=== PATIENT | female | born 1985 | race Asian ===

== ENCOUNTER → 2017-01-21 | Outpatient (CLI) | payer BC | END | disposition home or self-care (01) | LOC: C.PAPS 18:11 | PROVIDERS: ATTEND Obstetrics & Gynecology | DX: Z01.419 Encounter for gynecological examination (general) (routine) without abnormal findings (principal) ==

== ENCOUNTER → 2017-03-20 | Outpatient (CLI) | payer BC ==
[2017-03-25 12:12] LABS: QUANTIF TB AG-NIL <0.00 IU/ML; QUANTIFERON NIL 0.07 IU/ML
== END | disposition home or self-care (01) ==
LOC: C.LABSPEC 09:30
PROVIDERS: ATTEND Family Medicine
DX: Z11.1 Encounter for screening for respiratory tuberculosis (principal)

== ENCOUNTER 2017-11-16 20:57 | Inpatient (IN) | payer OTHER ==
[~2017-11-16] VITALS: Ht 165.1 cm; Wt 84.0 kg
[2017-11-16 22:30] VITALS: BMI 30.8
[2017-11-16] MEDS ORDERED: PRENTAB26 PO (22:33)
[2017-11-16 23:16] VITALS: Ht 165.1 cm; Wt 84.0 kg
[2017-11-16] MEDS ORDERED: NURSING VERBAL MED ORDER ONE (23:30)
[2017-11-16 23:33] LABS: HEMATOCRIT 41.2 % (37-47); HEMOGLOBIN 13.7 g/dL (12.0-16.0); MEAN CORPUSCULAR HEMOGLOBIN 29.9 pg (25-34); MEAN CORPUSCULAR HGB CONC 33.3 g/dl (32-36); MEAN PLATELET VOLUME 9.8 fL (7.4-10.4); PLATELET COUNT 240 K/uL (130-400); RED CELL DISTRIBUTION WIDTH CV 13.4 % (11.5-14.5); RED CELL DISTRIBUTION WIDTH SD 43.7 fL (36.4-46.3); WHITE BLOOD COUNT 11.97 K/uL (4.8-10.8)
[2017-11-16] MEDS: LACTATED RINGER'S 1000ML 1,000 ML IV SCH (23:35)
[2017-11-16] MEDS: BUTORPHANOL TARTRATE 1 MG/ML VIAL IV PRN (23:36)
[2017-11-17] MEDS: BUTORPHANOL TARTRATE 1 MG/ML VIAL IV PRN (04:31)
[2017-11-17] MEDS: LACTATED RINGER'S 1000ML 1,000 ML IV SCH ×3 (07:01→13:56)
[2017-11-17] MEDS ORDERED: BUPIVACAINE 0.25% 30 ML VIAL ONE (07:02)
[2017-11-17] MEDS ORDERED: EpHEDrine SULFATE INJ 50 MG/ML AMP ONE (07:02)
[2017-11-17] MEDS ORDERED: FENTANYL CITRATE INJ 50 MCG/1 ML 2 ML VIAL ONE (07:03)
[2017-11-17] MEDS ORDERED: FENTANYL 2MCG/ML ROPIV 1.25MG/ML 100ML BAG EPI ONE (07:03)
--- NOTE | 2017-11-17 07:55 | Progress Note ---
Progress Note Date of Service Nov 17, 2017. Progress Note Admit note 32 F P0010 at 39.2 weeks admitted in labor. FHT Cat 1. cervix 7/100/-0/ vertex. Will be getting epidural. anticipate normal delivery.
[2017-11-17] MEDS ORDERED: LACTATED RINGER'S 1000ML 500 ML IV PRN ×2 (08:28→16:22)
[2017-11-17] MEDS ORDERED: NALOXONE HCL INJ 1 MG in SODIUM CHLORIDE 0.9% 1000ML 1,000 ML IV PRN (08:28)
[2017-11-17] MEDS ORDERED: DiphenhydrAMINE HCL 50 MG/ML VIAL IV PRN (08:30)
[2017-11-17] MEDS ORDERED: ONDANSETRON INJ 2 MG/ML 2 ML VIAL IV PRN (08:30)
[2017-11-17] MEDS ORDERED: NALBUPHINE HCL INJ 10 MG/ML AMP IV PRN (08:30)
[2017-11-17] MEDS ORDERED: NALOXONE HCL INJ 0.4 MG/1 ML VIAL/CARP IV PRN (08:30)
[2017-11-17] MEDS ORDERED: EpHEDrine SULFATE INJ 50 MG/ML AMP IV PRN (08:30)
[2017-11-17] MEDS ORDERED: FENTANYL 2MCG/ML ROPIV 1.25MG/ML 100ML BAG EPI PRN (08:30)
[2017-11-17] MEDS ORDERED: OXYTOCIN 30 UNITS/500ML NSS IV PRN (16:30)
[2017-11-17] MEDS ORDERED: LACTATED RINGER'S 1000ML 1,000 ML IV SCH ×2 (16:48→18:18)
[2017-11-17] MEDS ORDERED: LIDOCAINE/EPINEPHRINE 2% 1:200,000 20 ML SDV ONE (16:51)
[2017-11-17] MEDS ORDERED: CITRIC ACID/SODIUM CITRATE 15 ML UDC ONE (16:53)
[2017-11-17] MEDS ORDERED: TERBUTALINE SULFATE 1 MG/ML VIAL SQ ONE (17:00)
[2017-11-17] MEDS ORDERED: CITRIC ACID/SODIUM CITRATE 15 ML UDC PO ONE (17:00)
[2017-11-17] MEDS ORDERED: CEFAZOLIN IV 2,000 MG in SYRINGE 0 ML IV ONE (17:00)
[2017-11-17] MEDS ORDERED: OXYTOCIN INJ 10 UNITS/ML VIAL ONE (17:32)
[2017-11-17] MEDS ORDERED: ONDANSETRON INJ 2 MG/ML 2 ML VIAL ONE (17:37)
[2017-11-17] MEDS ORDERED: MoRPHine SULFATE PF 1 MG/ML 10 ML AMP/VIAL ONE (17:37)
[2017-11-17] MEDS ORDERED: PHENYLEPHRINE HCL INJ 10 MG/ML VIAL ONE (17:49)
[2017-11-17] MEDS ORDERED: KETOROLAC TROMETHAMINE 30 MG/ML VIAL ONE (17:58)
--- NOTE | 2017-11-17 18:16 | [facility] Post Operative Brief Note ---
Immediate Operative Summary Operative Date Nov 17, 2017. Pre-Operative Diagnosis term , nonreassuring heart rate, arrest of descent Post-Operative Diagnosis term , nonreassuring heart rate, arrest of descent, persistent occiput transverse Procedure(s) Performed primary caesarean section for term , nonreassuring heart rate, arrest of descent, persistent occiput transverse for living male child at [address] Moreno Flight Attendant/Inflight Supervisor Surgeon(s) Dr. Sales Estimated Blood Loss 600 Findings Consistent with Post-Op Diagnosis Fluids (cc crystalloids) 700 ml Specimens placenta- hold cord blood Drains Luis blood tinged Anesthesia Type L&D Only EPID Exist Complication(s) none Disposition Accompanied Pt To Recover: yes Disposition: L&D
[2017-11-17] MEDS ORDERED: DIPHTHERIA/TETANUS/PERTUSSIS 0.5 ML SYR/VIAL IM. ONE (18:30)
[2017-11-17] MEDS ORDERED: BENZOCAINE 20% AER SPR 82.5 GM CAN EXT PRN (18:30)
[2017-11-17] MEDS ORDERED: MEASLES, MUMPS & RUBELLA VIRUS VIAL SQ. ONE (18:30)
[2017-11-17] MEDS ORDERED: HYDROCORTISONE ACETATE 25 MG SUPP PR PRN (18:30)
[2017-11-17] MEDS ORDERED: SUPERCREAM 0.870 % 15GM JAR EXT PRN (18:30)
[2017-11-17] MEDS ORDERED: LANOLIN OINT EXT PRN (18:30)
[2017-11-17] MEDS ORDERED: MAGNESIUM HYDROXIDE SUSP 30 ML UDC PO PRN (18:30)
[2017-11-17] MEDS ORDERED: SENNA 8.6 MG TAB PO PRN (18:30)
--- NOTE | 2017-11-17 18:31 | Anesthesia Procedure Note ---
Anesthesia Epidural Removal Nt Date & Time Nov 17, 2017 at 18:30 Vital Signs Pain Intensity: 8.0 Notes Mental Status: alert / awake / arousable, participated in evaluation Nausea / Vomiting: adequately controlled Pain: adequately controlled Airway Patency, RR, SpO2: stable & adequate BP & HR: stable & adequate Hydration State: stable & adequate Neuraxial Anesthesia: was administered, sensory block is resolving Anesthetic Complications: no major complications apparent, pt satisfied with anesthetic care Epidural: removed without complications, with tip intact Notes: epidural removed in OR after . Pt tolerated well - no apparent complications.
[2017-11-17] MEDS ORDERED: CONTINUE MEDICATION ONE (18:45)
[2017-11-17] MEDS ORDERED: MoRPHine SULFATE PF 1 MG/ML 10 ML AMP/VIAL EPI PRN (18:45)
[2017-11-17] MEDS ORDERED: KETOROLAC TROMETHAMINE 30 MG/ML VIAL IV. PRN (18:45)
[2017-11-17] MEDS ORDERED: NO NARCOTICS OR SEDATIVES SCH (18:45)
[2017-11-17] MEDS ORDERED: MoRPHine SULFATE 2 MG/ML CARP IV PRN (18:45)
--- NOTE | 2017-11-17 19:58 | HISTORY & PHYSICAL EXAMINATION ---
DATE OF ADMISSION: 11/17/2017 PREOPERATIVE DIAGNOSES: Term with nonreassuring heart tones, arrest of descent. POSTOPERATIVE DIAGNOSIS: Term with nonreassuring heart tones, arrest of descent. HISTORY OF PRESENT ILLNESS: The patient is a 32-year-old female 2, para 0-0-1-0 at 39 weeks and 2 days who is admitted in active labor. She progressed to full cervical dilatation, had arrest of descent, with nonreassuring heart tones, a primary section was then performed. PAST MEDICAL HISTORY: Nonsignificant. PAST SURGICAL HISTORY: Elective . MEDICATIONS: Current medications include vitamins. ALLERGIES: No known allergies. FAMILY HISTORY: Noncontributory. SOCIAL HISTORY: Denies smoking, alcohol, or drug use. PHYSICAL EXAMINATION: HEENT: Within normal limits. LUNGS: Clear to auscultation. CARDIOVASCULAR: Regular rate and rhythm. ABDOMEN: Soft, nontender, gravid. heart tones category 2 at the time of the decision for . NEUROLOGICAL: Intact. EXTREMITIES: Within normal limits. SKIN: With no rash. ASSESSMENT: Nonreassuring heart tones category 2. PLAN: section,
[2017-11-17] MEDS: OXYTOCIN INJ 30 UNITS in LACTATED RINGER'S 1000ML 1,000 ML IV SCH (20:26)
--- NOTE | 2017-11-17 20:27 | OPERATIVE REPORT ---
DATE OF OPERATION: 11/17/2017 PREOPERATIVE DIAGNOSES: Term with nonreassuring heart tones, arrest of descent. POSTOPERATIVE DIAGNOSES: Term with nonreassuring heart tones, arrest of descent, persistent occiput transverse position. SURGEON: Sami Moreno MD. BOX ATTACHER: Herminio Sales MD ANESTHESIA: Epidural with Duramorph. ESTIMATED BLOOD LOSS: 600 mL. CLINICAL HISTORY: The patient is a 32-year-old female para 0-0-1-0 at 39 weeks and 2 days admitted in labor. The patient progressed to full dilatation. She pushed for almost an hour. The patient had several episodes of bradycardia. The patient was repositioned in several positions, given Brethine, and decision was made to do a section for nonreassuring heart tone, persistent category 2, with recovery to normal category 1 heart tones after subcu Brethine. Consents were obtained. The patient had a timeout, and antibiotics were given preop. DESCRIPTION OF PROCEDURE: Under satisfactory epidural anesthesia, the patient was prepped and draped in the usual sterile fashion. A low Pfannenstiel incision entering into the abdominal cavity in successive layers was then used. Bladder flap was then made with sharp dissection. A low segment transverse incision over the lower uterine incision was made. The incision was widened in the AP diameter. The baby was found to be in the occiput transverse lie and then delivered with the aid of fundal pressure, live male. Cord was doubly clamped and cut. Apgars were actually 9 and 9. weight was 7 pounds 9 ounces. Cord blood was obtained. Placenta delivered spontaneously and intact. Uterus was then exteriorized. Ring forceps were then placed on both angles in the inferior margin. Uterus was closed in double layered closure with 0 Vicryl suture in a continuous interlocking fashion followed by another imbricating suture. No active bleeding was noted. The tubes and ovaries bilaterally were found to be within normal limits. Contents to the lower pelvis were then irrigated. Uterus was placed back into the normal anatomical position. There was a small amount of bleeding on the bladder flap. This was then cauterized, and then one area was bleeding, and a 3-0 Vicryl suture was then used. Surgicel was then applied over this area. No active bleeding was noted. The fascia was then reapproximated with 0 Vicryl suture in a continuous fashion on both sides. Subcuticular layer was closed with 3-0 plain, and the skin was then reapproximated with 4-0 Monocryl suture. Steri-Strips were then applied. Blood tinged urine was noted. Estimated blood loss is 600 mL. The final sponge, needle, and instrument counts were found to be correct. The patient was then placed supine on a stretcher and taken to recovery room in stable condition. I attest to the content of the Intraoperative Record and any orders documented therein. Any exception s are noted below.
[2017-11-17 21:00] VITALS: BP 109/69; PULSE 91; TEMP 37.4; O2SAT 96
[2017-11-17 22:00] VITALS: O2SAT 96
[2017-11-17] MEDS: DOCUSATE SODIUM 100 MG CAP PO SCH (22:30)
[2017-11-17] MEDS: SIMETHICONE 80 MG CHEW PO SCH (22:30)
[2017-11-17 23:00] VITALS: O2SAT 96
[2017-11-18] VITALS (14 sets, daily range): BP systolic 95–108; BP diastolic 52–73; PULSE 81–96; TEMP 36.8–37.4; O2SAT 93–97
[2017-11-18] MEDS: OXYTOCIN INJ 30 UNITS in LACTATED RINGER'S 1000ML 1,000 ML IV SCH (04:42)
[2017-11-18] MEDS ORDERED: MEPERIDINE HCL 50 MG/ML CARP IV PRN ×2 (06:30)
[2017-11-18] MEDS ORDERED: DC INTRASPINAL MORPHINE SCH (06:30)
[2017-11-18] MEDS ORDERED: KETOROLAC TROMETHAMINE 30 MG/ML VIAL IV. PRN (06:30)
[2017-11-18] MEDS ORDERED: ONDANSETRON INJ 2 MG/ML 2 ML VIAL IV PRN (06:30)
[2017-11-18] MEDS ORDERED: DiphenhydrAMINE HCL 50 MG/ML VIAL IV PRN (06:30)
[2017-11-18] MEDS ORDERED: OXYCODONE/ACETAMINOPHEN 5-325 TAB PO PRN (06:30)
[2017-11-18 06:32] LABS: BASO % 0.1 %; BASO ABS # 0.02 K/uL (0-0.2); EOS % 0.5 %; EOS ABS # 0.08 K/uL (0-0.5); HEMATOCRIT 30.3 % (37-47); HEMOGLOBIN 10.3 g/dL (12.0-16.0); IG# 0.07 K/uL (0.00-0.02); LYMPH % 8.2 %; LYMPH ABS # 1.36 K/uL (1.2-3.4); MEAN CELL VOLUME 89.1 fL (80-100); MEAN CORPUSCULAR HEMOGLOBIN 30.3 pg (25-34); MEAN PLATELET VOLUME 9.5 fL (7.4-10.4); MONO % 5.7 %; MONO ABS # 0.94 K/uL (0.11-0.59); NEUT % 85.1 %; PLATELET COUNT 174 K/uL (130-400); RED CELL DISTRIBUTION WIDTH CV 13.4 % (11.5-14.5); RED CELL DISTRIBUTION WIDTH SD 43.9 fL (36.4-46.3); WHITE BLOOD COUNT 16.57 K/uL (4.8-10.8)
[2017-11-18] MEDS: PRENATAL VITAMIN TAB PO SCH (08:07)
[2017-11-18] MEDS: FERROUS SULFATE 325 MG TAB PO SCH (08:07)
[2017-11-18] MEDS: SIMETHICONE 80 MG CHEW PO SCH ×4 (08:07→20:00)
[2017-11-18] MEDS: DOCUSATE SODIUM 100 MG CAP PO SCH ×2 (08:07→20:00)
[2017-11-18] MEDS: IBUPROFEN 600 MG TAB PO PRN ×3 (08:08→20:01)
[2017-11-18] MEDS: OXYCODONE/ACETAMINOPHEN 5-325 TAB PO PRN ×3 (08:09→20:01)
--- NOTE | 2017-11-18 09:40 | Surgery Progress Note ---
Surgery Progress Note Date of Service Nov 18, 2017. Subjective Post OP Day: 1 + feeling well, + ambulating, + flatus, + pain controlled, + diet (Tolerating Po food and meds), No complaints, No chest pain, No bowel movement Objective Vital Signs: Date Time Temp Pulse Resp B/P (MAP) Pulse Ox O2 Delivery O2 Flow Rate FiO2 11/18/17 07:55 Room Air 11/18/17 07:51 37.4 96 17 101/68 (79) 93 Room Air 11/18/17 06:49 37.4 96 16 108/73 (85) 94 Room Air 11/18/17 06:00 16 93 11/18/17 05:00 16 95 11/18/17 04:00 16 96 11/18/17 03:46 37.3 85 16 99/66 (77) 95 Room Air 11/18/17 03:00 18 97 11/18/17 02:00 16 97 11/18/17 01:00 16 93 11/18/17 00:00 37.2 81 16 102/65 (77) 97 Room Air 11/18/17 00:00 16 97 11/18/17 00:00 97 Room Air 11/17/17 23:00 16 96 11/17/17 22:00 16 96 11/17/17 21:00 16 96 11/17/17 21:00 37.4 91 16 109/69 (82) 96 Room Air General Appearance: WD/WN, no apparent distress Head: normocephalic, atraumatic Neck: supple, no adenopathy, thyroid normal, no JVD, no carotid bruits, trachea midline Respiratory/Chest: chest non-tender, lungs clear, normal breath sounds, no respiratory distress, no accessory muscle use Cardiovascular: regular rate, rhythm, no edema, no gallop, no JVD, no murmur Abdomen: normal bowel sounds, non tender, non distended, soft, no organomegaly , no pulsatile mass Incision(s): clean, dry, intact, no erythema, no drainage Extremities: normal range of motion, non-tender, normal inspection, no pedal edema, no calf tenderness, normal capillary refill, pelvis stable Laboratory Results: Results Past 24 Hours Test 11/18/17 06:12 Range/Units White Blood Count 16.57 4.8-10.8 K/uL Red Blood Count 3.40 4.2-5.4 M/uL Hemoglobin 10.3 12.0-16.0 g/dL Hematocrit 30.3 37-47 % Mean Corpuscular Volume 89.1 80-100 fL Mean Corpuscular Hemoglobin 30.3 25-34 pg Mean Corpuscular Hemoglobin Concent 34.0 32-36 g/dl Platelet Count 174 130-400 K/uL Mean Platelet Volume 9.5 7.4-10.4 fL Neutrophils (%) (Auto) 85.1 % Lymphocytes (%) (Auto) 8.2 % Monocytes (%) (Auto) 5.7 % Eosinophils (%) (Auto) 0.5 % Basophils (%) (Auto) 0.1 % Neutrophils # (Auto) 14.10 1.4-6.5 K/uL Lymphocytes # (Auto) 1.36 1.2-3.4 K/uL Monocytes # (Auto) 0.94 0.11-0.59 K/uL Eosinophils # (Auto) 0.08 0-0.5 K/uL Basophils # (Auto) 0.02 0-0.2 K/uL RDW Standard Deviation 43.9 36.4-46.3 fL RDW Coefficient of Variation 13.4 11.5-14.5 % Immature Granulocyte % (Auto) 0.4 % Immature Granulocyte # (Auto) 0.07 0.00-0.02 K/uL Assessment & Plan C.sec day #1 pt doing well continue day #1 care
[2017-11-18] MEDS ORDERED: BISACODYL 5 MG TABEC PO ONE (22:00)
[2017-11-19 08:00] VITALS: BP 104/68; PULSE 81; TEMP 37
[2017-11-19] MEDS: OXYCODONE/ACETAMINOPHEN 5-325 TAB PO PRN ×2 (08:44→15:56)
[2017-11-19] MEDS: IBUPROFEN 600 MG TAB PO PRN ×2 (08:44→15:56)
[2017-11-19] MEDS: DOCUSATE SODIUM 100 MG CAP PO SCH ×2 (08:45→19:43)
[2017-11-19] MEDS: PRENATAL VITAMIN TAB PO SCH (08:45)
[2017-11-19] MEDS: FERROUS SULFATE 325 MG TAB PO SCH (08:45)
[2017-11-19] MEDS: SIMETHICONE 80 MG CHEW PO SCH ×4 (08:46→19:43)
--- NOTE | 2017-11-19 09:28 | OB/GYN Progress Note ---
SIGN BOARD ERECTOR Progress Note Date of Service: Nov 19, 2017. Patient is seen and examined. She feels well, no complaints. Pain is under control with oral meds. Ambulating without dizziness. Voiding without difficulty Tolerating regular diet with out N&V Flatus + BM NEG Bleeding is minimal No fever/ chills/ CP/ SOB/ N&V/ Leg pain Breast feeding without problems Date Time Temp Pulse Resp B/P (MAP) Pulse Ox O2 Delivery O2 Flow Rate FiO2 11/19/17 08:00 37.0 81 16 104/68 (80) Room Air 11/19/17 07:35 Room Air 11/18/17 23:30 37.0 96 16 104/70 (81) 94 Room Air 11/18/17 23:30 94 Room Air 11/18/17 16:15 36.8 84 18 104/69 (81) 97 Room Air 11/18/17 16:15 97 Room Air 11/18/17 11:54 37.1 94 15 95/52 (66) 93 Room Air Test 11/16/17 23:26 11/18/17 06:12 White Blood Count 11.97 H 16.57 H Red Blood Count 4.58 3.40 L Hemoglobin 13.7 10.3 #L Hematocrit 41.2 30.3 L Mean Corpuscular Volume 90.0 89.1 Mean Corpuscular Hemoglobin 29.9 30.3 Mean Corpuscular Hemoglobin Concent 33.3 34.0 RDW Standard Deviation 43.7 43.9 RDW Coefficient of Variation 13.4 13.4 Platelet Count 240 174 Mean Platelet Volume 9.8 9.5 Neutrophils (%) (Auto) 85.1 Lymphocytes (%) (Auto) 8.2 Monocytes (%) (Auto) 5.7 Eosinophils (%) (Auto) 0.5 Basophils (%) (Auto) 0.1 Neutrophils # (Auto) 14.10 H Lymphocytes # (Auto) 1.36 Monocytes # (Auto) 0.94 H Eosinophils # (Auto) 0.08 Basophils # (Auto) 0.02 Immature Granulocyte % (Auto) 0.4 Immature Granulocyte # (Auto) 0.07 H PE: General: Alert, orientedx3, NAD CVS: S1S2 RRR Lungs; CTAB Abd: soft, NT, ND, BS+, fundus firm, below Umbilicus Incision: Clean, dry, intact Perineum intact, Lochia rubra minimal Ext; NT, no edema AP: 32 yo s/p C Section, pod# 2 VSS Afebrile doing well Continue routine postop care Encourage ambulation, PO intake All questions were answered D/C home tomorrow
[2017-11-19 16:10] VITALS: BP 103/69; PULSE 91; TEMP 37.3; O2SAT 97
[2017-11-19] MEDS ORDERED: BISACODYL 10 MG SUPP PR PRN (18:30)
[2017-11-19 23:45] VITALS: BP 110/75; PULSE 83; TEMP 37.1; O2SAT 94
[2017-11-20 07:30] VITALS: BP 134/88; PULSE 101; TEMP 37.1; O2SAT 99
[2017-11-20] MEDS: DOCUSATE SODIUM 100 MG CAP PO SCH (07:49)
[2017-11-20] MEDS: PRENATAL VITAMIN TAB PO SCH (07:49)
[2017-11-20] MEDS: FERROUS SULFATE 325 MG TAB PO SCH (07:49)
[2017-11-20] MEDS: SIMETHICONE 80 MG CHEW PO SCH (07:50)
[2017-11-20] MEDS: IBUPROFEN 600 MG TAB PO PRN (07:52)
[2017-11-20] MEDS ORDERED: OXYC-57 PO (09:12)
[2017-11-20] MEDS ORDERED: MTR600X PO (09:12)
--- NOTE | 2017-11-20 09:14 | Discharge Instructions ---
Discharge Instructions Date of Service Nov 20, 2017. Admission Reason for Admission: Check Bleeding Discharge Discharge Diagnosis / Problem: term delivered by Discharge Goals Goal(s): Routine recovery after Activity Recommendations Activity Limitations: as noted below Lifting Limitations: no more than 10 pounds Exercise/Sports Limitations: gradually increase as tolerated May Resume Sexual Activity: after follow-up appointment Shower/Bathe: no limitations Driving or Machine Use: resume 3 days after discharge . Instructions / Follow-Up Instructions / Follow-Up ACTIVITY RECOMMENDATIONS: * Gradual return to full activity over the next 2-3 weeks. * No lifting - nothing heavier than baby over the next 2-3 weeks. * Do not engage in vigorous exercise, sexual activity or sports until cleared by your physician. * Do not drive or operate any motorized equipment until cleared by your physician. * You may shower/bathe daily. BREAST CARE: If you are not breast feeding: * Wear a supportive bra 24 hours a day for one to two weeks. * Avoid stimulating your breasts and nipples as much as possible during the first few weeks after delivery. * When taking a shower, have the warm water hit your back, not breasts. * When your breasts feel full, apply ice packs. Usually three to four times a day helps ease the discomfort. * Take a mild pain medication (Tylenol/Motrin) when you are uncomfortable. If breast feeding: * Use breast milk to lubricate nipples. Lansinoh cream may be used for sore nipples. You do not need to remove cream prior to breast feeding. If using a different brand of cream, check the label for directions regarding removal of cream prior to nursing. * Wear a supportive bra. * If having problems with breasts or breast feeding, call a taxation consultant or your health care provider. OVER THE COUNTER MEDICATION: * For discomfort or pain, you may use Acetaminophen (Tylenol), Ibuprofen (Advil ), or Naproxen (Aleve) following the package directions. * For constipation you may use Colace following the package directions. SPECIAL CARE INSTRUCTIONS: When you are discharged from the hospital, it is important for you to follow the instructions listed below: * During the first week at home, you should be able to care for yourself and your baby. In addition, the usual light household activities are encouraged. * Limit your activities to the way you feel. Do not try to clean the house or move furniture. Be sensible. * If you actively engage in sports and have done so up until the time of your delivery, you may resume these activities as soon as you feel able. This may take up to one month or even longer. Use good judgment. * Continue to take your vitamins for at least six weeks after the of your baby. * Your diet need not be limited unless you were on a special diet before your delivery. Breast-feeding mothers need around 2500 calories per day and at least 64-80 ounces of fluid per day (8 to 10 glasses). * You should eat foods from the four major food groups. Crash diets or fad diets are to be avoided. Eating lean meats, fresh fruits and vegetables, low-fat dairy products, high fiber foods and a regular exercise program, will help you get back to your pre- weight without putting your health at risk. * Constipation is sometimes a problem after delivery. Take a mild laxative as needed. If breast feeding, Milk of Magnesia is acceptable to use. You may use a suppository or Fleets enema if no episiotomy. * A daily shower or tub bath is suggested. Be sure to thoroughly and gently dry the perineum. * A bloody vaginal discharge will usually continue until around four weeks post . A small amount of bleeding may continue for as long as six weeks. Vaginal discharge changes from the bright red bleeding after delivery to pink then brownish and finally yellowish-pink before becoming white and disappearing. * Bleeding may increase with activity. Your first period may come in 4-8 weeks. If you are breast feeding, your period may be delayed even longer. * [place] (sex) can begin whenever both you and your partner feel comfortable and do not have any form of genital infection. It is recommended that you wait at least six weeks for internal and external healing to occur. If you have questions, please talk to your health care practitioner. A condom should be used to prevent infection and . * Foreplay, gentle intercourse and lubrication is very important the first several times to prevent pain. A water-based lubricant such as K-Y jelly or Astroglide may be used. * Tampons and/or Douching should be avoided until after six weeks check-up. * If you have RH negative blood and your baby is RH positive, you will receive RHOGAM by injection prior to discharge. The nurse will give you a card to keep with you that has the date and place that you received RHOGAM after delivery. * During your care, you had a Rubella screen done to check for the presence of rubella antibodies in your blood. If your test was negative, you will receive a Rubella vaccine prior to discharge. This vaccine may cause a fever, soreness at the injection site and flu-like symptoms. If these symptoms persist, notify your health care practitioner. is not advised for three months after a Rubella vaccine. * Verbalizes understanding of car seat law as reviewed with patient nursing. * Car Seat hand-out given and reviewed with patient by nursing. * Shaken baby information reviewed with patient by nursing. Call you doctor if: * Heavy bleeding (saturating several pads an hour) or passing clots the size of your fist. * A fever >101 degrees F (38.3 degrees C) on two occasions four hours apart and /or chills. * Unusual pain in the pelvic or vaginal areas. Pain should improve each day . * Call the doctor for any increased redness, drainage or swelling around the incision and any pain unrelieved by prescribed pain medication. * Any signs or symptoms of phlebitis (possible blood clots forming in the veins ): leg pain, warm, red or swollen area on leg. * "Baby Blues" lasting longer than two weeks. If you have any questions or concerns, call your health care practitioner at . FOLLOW-UP VISIT: * Incision check (staple removal) in 1 week. Please call doctor's office at to set up appointment. * Please call the office at to schedule a 6 week examination. It is important you keep this appointment. * It is important for you to make arrangements for either yearly or twice yearly check-ups thereafter. Current Hospital Diet Patient's current hospital diet: Regular Diet Discharge Diet Recommended Diet: Regular OB Diet Fluid Restriction: None Procedures Procedures Performed: primary caesarean section for term , nonreassuring heart rate, arrest of descent, persistent occiput transverse for living male child at 1732 Pending Studies Studies pending at discharge: no Medical Emergencies . Who to Call and When: Medical Emergencies: If at any time you feel your situation is an emergency, please call 911 immediately. . Non-Emergent Contact Non-Emergency issues call your: Primary Care Provider . . "Provider Documentation" section prepared by Sami Moreno. .
--- NOTE | 2017-11-20 09:57 | Surgery Progress Note ---
Surgery Progress Note Date of Service Nov 20, 2017. Subjective Post OP Day: 3 + ambulating, + bowel movement, + flatus, + pain controlled, + diet Objective Vital Signs: Date Time Temp Pulse Resp B/P (MAP) Pulse Ox O2 Delivery O2 Flow Rate FiO2 11/20/17 07:30 37.1 101 16 134/88 (103) 99 Room Air 11/20/17 07:30 99 Room Air 11/19/17 23:45 94 Room Air 11/19/17 23:45 37.1 83 16 110/75 (87) 94 Room Air 11/19/17 16:10 37.3 91 18 103/69 (80) 97 Room Air 11/19/17 16:10 97 Room Air General Appearance: no apparent distress Abdomen: non tender, non distended, soft Incision(s): clean, dry, intact Extremities: non-tender, normal inspection, no pedal edema Assessment & Plan regular diet discharged home follow up in 1 week in office
[2017-11-20 12:02] VITALS: BP_DIAS 88; PULSE 101; TEMP 37.1
== END 2017-11-20 12:00 | disposition home or self-care (01) | DRG 766 ==
LOC: C.LD 20:57 → C.OPB 20:57 → C.LD 23:14 → C.OBG 11-17 20:43
PROVIDERS: ADMIT Obstetrics & Gynecology; ATTEND Obstetrics & Gynecology
PROC: 10D00Z1 Extraction of Products of Conception, Low, Open Approach (ICD-10-PCS; principal; 2017-11-17 17:04)
DX: O76 Abnormality in fetal heart rate and rhythm complicating labor and delivery (principal); O64.0XX0 Obstructed labor due to incomplete rotation of fetal head, not applicable or unspecified; Z3A.39 39 weeks gestation of pregnancy; Z37.0 Single live birth

== ENCOUNTER 2022-03-15 16:30 | Inpatient (IN) ==
[2022-03-15] MEDS: LACTATED RINGER'S 1,000 ML IV PRN ×2 (17:37→18:45)
[2022-03-15] MEDS ORDERED: OXYTOCIN 30 UNITS/500 ML BAG IV PRN (17:45)
[2022-03-15 17:59] LABS: Hematocrit (blood only) 38.7 % (34.1-44.9); Hemoglobin 13.1 g/dl (12.0-16.0); Mean Corpuscular Hemoglobin 30.9 pg (25.0-34.0); Mean Corpuscular Hgb Conc 33.9 g/dL (32.0-36.0); Mean Corpuscular Volume 91.3 fL (80.0-100.0); Mean Platelet Volume 10.2 fL (9.4-12.3); Platelet Count 191 K/uL (130-400); RDW Coefficient of Variation 13.2 % (11.5-14.5); RDW Standard Deviation 44.2 fL (36.4-46.3); Red Blood Count 4.24 M/uL (3.93-5.22); White Blood Count 12.09 K/ul (4.8-10.8)
[2022-03-15] MEDS ORDERED: ePHEDrine sulfate 50 MG/ML AMP ONE (18:03)
[2022-03-15] MEDS ORDERED: fentaNYL citrate 100 MCG/2 ML VIAL ONE (18:03)
[2022-03-15] MEDS ORDERED: SODIUM CHLORIDE 0.9% INJ 10 ML VIAL ONE (18:03)
[2022-03-15] MEDS ORDERED: fentaNYL 2MCG/ML ROPIVACAINE 1.25MG/ML 100 ML BAG EPI ONE (18:04)
[2022-03-15] MEDS ORDERED: BUPIVACAINE 0.25% 30 ML VIAL ONE (18:04)
--- NOTE | 2022-03-15 19:17 | Anesthesiology Consultation ---
Date of Service March 15, 2022 Assessment & Plan (1) Encounter for pre-operative examination: Chart Review Chart Review: Acceptable Risk for Labor Epidural History Height/Weight Height: 5 ft 5.75 in Weight: 82.554 kg Allergies Allergy/AdvReac Type Severity Reaction Status Date / Time No Known Allergies Allergy Unverified 11/20/17 07:48 Medications Home Medications Medication Instructions Recorded Confirmed Last Taken Multivit/Min/Iron/Fol Ac/Pren 1 tab PO DAILY #0 tabs 11/16/17 Unknown ( Vitamin) Ibuprofen 600 mg PO Q4H PRN Pain, DERAS, 11/20/17 Unknown Cramping, or Fever #30 tabs OXYCODONE/ACETAMINOPHEN 5MG/325MG 1 tab PO Q4H PRN Pain - Pain Scale 11/20/17 Unknown (PERCOCET 5MG/325MG) 1-5 #20 tabs Active Medications Generic Name Dose Route Start Last Admin Trade Name Freq PRN Reason Stop Dose Admin Lactated Ringer's 1,000 mls @ 125 mls/hr 03/15/22 17:45 03/15/22 18:45 Lr IV 03/17/22 17:44 125 mls/hr .Q8H PRN Administration L&D Protocol Protocol Past Medical History Medical History (Updated 03/15/22 @ 19:17 by Deepak Villalta MD) No significant medical problems Past Surgical History Surgical History (Updated 03/15/22 @ 19:17 by Deepak Villalta MD) No pertinent past surgical history Social History Smoking Status: Never smoker Do You Dip or Chew Tobacco: No Hx Alcohol Use: No Hx Substance Use: No substance use type: does not use Physical Exam Vital Signs Last Vital Signs Temp 36.6 C 03/15/22 16:52 Pulse 72 03/15/22 16:52 Resp 18 03/15/22 16:52 BP 126/87 03/15/22 16:52 Testing Laboratory Results 03/15/22 17:50
[2022-03-15] MEDS ORDERED: NALOXONE HCL 0.4 MG/1 ML VIAL/CARP IV PRN (19:41)
[2022-03-15] MEDS ORDERED: fentaNYL 2MCG/ML ROPIVACAINE 1.25MG/ML 100 ML BAG EPI PRN (19:41)
[2022-03-15] MEDS ORDERED: ONDANSETRON INJ 2 MG/ML 2 ML VIAL IV PRN (19:41)
[2022-03-15] MEDS ORDERED: NALOXONE HCL 1 MG in SODIUM CHLORIDE 0.9% 1000ML 1,000 ML IV PRN (19:41)
[2022-03-15] MEDS ORDERED: ePHEDrine sulfate 50 MG/ML AMP IV PRN (19:41)
--- NOTE | 2022-03-15 20:42 | Labor Progress Brief Note ---
Date of Service March 15, 2022 Assessment & Plan (1) (vaginal after ): Plan: Pt attempting Discussed and reviewed risk of consent signed by pt FHR; CAT1 Ctx: 3-4mins VE; /-1 AROM- clear anticipate vag delivery Admission and Anticipated Discharge Date Admission Date: March 15, 2022 Results & Data ([facility]) Vital Signs (Past 12 Hours) Vital Signs Temp Pulse Resp BP Pulse Ox 03/15/22 16:52 36.6 C 72 18 126/87 03/15/22 20:34 97 03/15/22 20:34 80 03/15/22 20:34 111/73 03/15/22 20:29 97 03/15/22 20:29 81 03/15/22 20:24 97 03/15/22 20:24 77 03/15/22 20:19 98 03/15/22 20:19 82 03/15/22 20:19 117/75 03/15/22 20:14 98 03/15/22 20:14 89 03/15/22 20:06 36.7 C 03/15/22 20:09 97 03/15/22 20:09 81 03/15/22 20:04 98 03/15/22 20:04 78 03/15/22 19:59 97 03/15/22 19:59 82 03/15/22 19:54 97 03/15/22 19:54 80 03/15/22 19:49 97 03/15/22 19:49 83 03/15/22 19:48 80 03/15/22 19:48 115/75 03/15/22 19:46 81 03/15/22 19:46 111/72 03/15/22 19:44 98 03/15/22 19:44 77 03/15/22 19:44 80 03/15/22 19:44 116/73 03/15/22 19:42 74 03/15/22 19:42 144/80 H 03/15/22 19:39 98 03/15/22 19:39 84 03/15/22 19:40 81 03/15/22 19:40 104/65 03/15/22 19:38 81 03/15/22 19:38 101/65 03/15/22 19:36 72 03/15/22 19:36 97/63 L 03/15/22 19:34 99 03/15/22 19:34 82 03/15/22 19:29 98 03/15/22 19:29 76 03/15/22 19:24 98 03/15/22 19:24 85 03/15/22 19:19 98 03/15/22 19:19 84 03/15/22 16:44 36.6 C 72 126/87
[2022-03-16] MEDS ORDERED: METHYLERGONOVINE MALEATE 0.2 MG/ML AMP ONE (01:37)
[2022-03-16] MEDS ORDERED: miSOPROStoL 200 MCG TAB ONE (01:37)
[2022-03-16] MEDS ORDERED: BENZOCAINE 20% AER SPR 82.5 GM CAN EXT PRN (02:14)
[2022-03-16] MEDS ORDERED: ACETAMINOPHEN 325 MG TAB PO PRN (02:14)
[2022-03-16] MEDS ORDERED: OXYTOCIN 30 UNITS/500 ML BAG IV PRN (02:14)
[2022-03-16] MEDS ORDERED: METHYLERGONOVINE MALEATE 0.2 MG/ML AMP IM ONE (02:14)
[2022-03-16] MEDS ORDERED: miSOPROStoL 200 MCG TAB PR ONE (02:14)
[2022-03-16] MEDS ORDERED: HYDROCORTISONE ACETATE 25 MG SUPP PR PRN (02:14)
[2022-03-16] MEDS ORDERED: DIPHTHERIA/TETANUS/PERTUSSIS 0.5 ML SYR/VIAL IM ONE (02:14)
--- NOTE | 2022-03-16 02:23 | Anesthesia Procedure Note ---
Date of Service March 16, 2022 Anesthesia Post Epidural Note Vital Signs Vital Signs: Temp Pulse Resp BP Pulse Ox 36.8 C 91 H 18 143/82 H 96 03/15/22 22:00 03/16/22 02:19 03/15/22 23:00 03/16/22 02:19 03/16/22 02:09 Notes Mental Status: alert / awake / arousable Nausea / Vomiting: adequately controlled Pain: adequately controlled Airway Patency, RR, SpO2: stable & adequate BP & HR: stable & adequate Hydration State: stable & adequate Neuraxial Anesthesia: was administered and sensory block is resolving Anesthetic Complications: no major complications apparent and Pt Satisfied with anesthetic care Epidural: Removed without complications and With tip intact
[2022-03-16 02:24] LABS: Base Excess Cord Arterial Bld -4.7 mEq/L (-9-1.8); Base Excess Cord Venous Blood -4.4 mEq/L (-7.7-1.9); CO2 Cord Arterial Blood 69 mmHg (39.1-73.5); Cord Venous Blood HCO3 23 mmol/L (18.4-26.8); Cord Venous Blood PCO2 48 mmHg (30.4-57.2); Cord Venous Blood PO2 28 mmHg (14.1-43.3); Cord Venous Blood pH 7.28 (7.20-7.44); HCO3 Cord Arterial Blood 25 mmol/L (19.7-28.5); O2 Saturation Cord Venous Bld < 60.0 % (<68); Oxygen Sat Cord Arterial Blood < 60.0 % (<60); PO2 Cord Arterial Blood 14 mmHg (4.1-31.7); pH Cord Arterial Blood 7.17 (7.1-7.38)
[2022-03-16] MEDS: IBUPROFEN 600 MG TAB PO PRN ×3 (06:45→20:41)
[2022-03-16] MEDS: PRENATAL VITAMIN 1 TAB PO SCH (09:05)
[2022-03-16] MEDS: DOCUSATE SODIUM 100 MG CAP PO SCH ×2 (09:05→20:40)
--- NOTE | 2022-03-16 09:20 | Delivery Summary ---
DELIVERY NOTE: The patient delivered a live infant in left occiput anterior presentation. There was no nuchal cord. was delivered and placed on mother's abdomen. Delayed cord clamp was performed. Weight and Apgars in the pediatric record. Cord blood and cord gases were obtained. Placenta was spontaneousl y delivered. Inspection of the placenta shows a 2-vessel cord. Inspection of the perineum shows a third-degree midline laceration. Laceration was repaired in layer s with 2-0 and 3-0 Vicryl. Rectal exam was done during and after the procedure. There were no sutur es in the rectum. There was good sphincter tone post-repair. Estimated blood loss was 450 mL. All instruments were removed from the vagina and accounted for x2 including sponges, needles, and ret ractors. Baby was sent to recovery in stable condition. Job ID: [id number]
--- NOTE | 2022-03-16 10:16 | Obstetrical Progress Note ---
Date of Service March 16, 2022 Subjective Ambulation: limited ambulation Voiding: voiding difficulty Passing Gas:: Yes Diet Tolerance:: regular diet Lochia:: Small Feeding Type:: breast feeding Current Pain Level(1-10): 0 having difficulty voiding Physical Exam Constitutional WD/WN, vitals as above Musculoskeletal Extremities: extremities normal to inspection Skin no rashes, warm and dry Neurologic patellar DTR's 2+ bilat, sensation intact Psychiatric A+Ox3, euthymic affect Results & Data ([facility]) Vital Signs (Past 12 Hours) Vital Signs Temp Pulse Pulse Pulse Resp BP BP 03/16/22 07:50 37 C 81 16 108/72 03/16/22 04:26 37.2 C 87 16 138/84 03/16/22 04:04 89 126/78 03/16/22 03:49 98 H 109/78 03/16/22 03:34 94 H 120/68 03/16/22 03:20 98 H 135/62 03/16/22 03:04 90 151/81 H 03/16/22 02:49 96 H 151/97 H 03/16/22 02:34 77 141/94 H 03/16/22 02:19 91 H 143/82 H 03/16/22 02:09 95 H 03/16/22 02:04 03/16/22 02:04 89 03/16/22 02:04 89 117/71 03/16/22 01:59 89 03/16/22 01:54 91 H 03/16/22 01:49 03/16/22 01:49 91 H 03/16/22 01:49 90 111/68 03/16/22 01:44 94 H 03/16/22 01:39 96 H 03/16/22 01:34 03/16/22 01:34 102 H 03/16/22 01:34 103 H 118/69 03/16/22 01:29 98 H 03/16/22 01:28 95 H 03/16/22 01:24 92 H 03/16/22 01:19 03/16/22 01:19 90 03/16/22 01:19 88 114/66 03/16/22 01:17 93 H 03/16/22 01:14 89 03/16/22 01:09 94 H 03/16/22 01:04 88 111/69 03/16/22 01:02 111 H 03/16/22 00:59 96 H 03/16/22 00:54 95 H 03/16/22 00:52 105 H 03/16/22 00:49 03/16/22 00:49 93 H 03/16/22 00:49 105 H 119/57 L 03/16/22 00:44 93 H 03/16/22 00:39 116 H 03/16/22 00:35 95 H 119/69 03/16/22 00:34 102 H 03/16/22 00:29 97 H 03/16/22 00:24 99 H 03/16/22 00:19 93 H 03/16/22 00:14 97 H 03/16/22 00:09 79 03/16/22 00:04 03/16/22 00:04 80 03/16/22 00:04 75 105/56 L 03/15/22 23:59 03/15/22 23:59 81 03/15/22 23:00 18 03/15/22 23:00 18 03/15/22 23:54 03/15/22 23:54 88 03/15/22 23:50 83 03/15/22 23:50 101/55 L 03/15/22 23:49 03/15/22 23:49 83 03/15/22 23:44 03/15/22 23:44 81 03/15/22 23:39 03/15/22 23:39 85 03/15/22 23:34 03/15/22 23:34 85 03/15/22 23:35 88 03/15/22 23:35 101/58 L 03/15/22 23:29 03/15/22 23:29 86 03/15/22 23:24 03/15/22 23:24 89 03/15/22 23:19 03/15/22 23:19 89 03/15/22 23:19 107/62 03/15/22 23:14 03/15/22 23:14 87 03/15/22 23:09 03/15/22 23:09 94 H 03/15/22 23:04 03/15/22 23:04 86 03/15/22 23:04 80 03/15/22 23:04 107/60 03/15/22 22:59 03/15/22 22:59 83 03/15/22 22:54 03/15/22 22:54 88 03/15/22 22:49 03/15/22 22:49 86 03/15/22 22:49 105/57 L 03/15/22 22:44 03/15/22 22:44 83 03/15/22 22:39 03/15/22 22:39 81 03/15/22 22:34 03/15/22 22:34 95 H 03/15/22 22:34 93 H 03/15/22 22:34 105/57 L 03/15/22 22:29 03/15/22 22:29 85 03/15/22 22:24 03/15/22 22:24 85 03/15/22 22:19 03/15/22 22:19 77 03/15/22 22:20 77 03/15/22 22:20 103/57 L Pulse Ox O2 Del Method 03/16/22 07:50 Room Air 03/16/22 04:26 96 Room Air 03/16/22 04:04 03/16/22 03:49 03/16/22 03:34 03/16/22 03:20 03/16/22 03:04 03/16/22 02:49 03/16/22 02:34 03/16/22 02:19 03/16/22 02:09 96 03/16/22 02:04 96 03/16/22 02:04 03/16/22 02:04 03/16/22 01:59 96 03/16/22 01:54 96 03/16/22 01:49 96 03/16/22 01:49 03/16/22 01:49 03/16/22 01:44 96 03/16/22 01:39 95 03/16/22 01:34 96 03/16/22 01:34 03/16/22 01:34 03/16/22 01:29 98 03/16/22 01:28 94 03/16/22 01:24 97 03/16/22 01:19 96 03/16/22 01:19 03/16/22 01:19 03/16/22 01:17 91 03/16/22 01:14 97 03/16/22 01:09 97 03/16/22 01:04 96 03/16/22 01:02 87 L 03/16/22 00:59 97 03/16/22 00:54 97 03/16/22 00:52 92 03/16/22 00:49 96 03/16/22 00:49 03/16/22 00:49 03/16/22 00:44 96 03/16/22 00:39 98 03/16/22 00:35 03/16/22 00:34 97 03/16/22 00:29 96 03/16/22 00:24 97 03/16/22 00:19 98 03/16/22 00:14 98 03/16/22 00:09 95 03/16/22 00:04 95 03/16/22 00:04 03/16/22 00:04 03/15/22 23:59 95 03/15/22 23:59 03/15/22 23:00 03/15/22 23:00 03/15/22 23:54 96 03/15/22 23:54 03/15/22 23:50 03/15/22 23:50 03/15/22 23:49 96 03/15/22 23:49 03/15/22 23:44 96 03/15/22 23:44 03/15/22 23:39 96 03/15/22 23:39 03/15/22 23:34 96 03/15/22 23:34 03/15/22 23:35 03/15/22 23:35 03/15/22 23:29 96 03/15/22 23:29 03/15/22 23:24 96 03/15/22 23:24 03/15/22 23:19 97 03/15/22 23:19 03/15/22 23:19 03/15/22 23:14 96 03/15/22 23:14 03/15/22 23:09 96 03/15/22 23:09 03/15/22 23:04 96 03/15/22 23:04 03/15/22 23:04 03/15/22 23:04 03/15/22 22:59 95 03/15/22 22:59 03/15/22 22:54 95 03/15/22 22:54 03/15/22 22:49 96 03/15/22 22:49 03/15/22 22:49 03/15/22 22:44 96 03/15/22 22:44 03/15/22 22:39 96 03/15/22 22:39 03/15/22 22:34 97 03/15/22 22:34 03/15/22 22:34 03/15/22 22:34 03/15/22 22:29 95 03/15/22 22:29 03/15/22 22:24 96 03/15/22 22:24 03/15/22 22:19 97 03/15/22 22:19 03/15/22 22:20 03/15/22 22:20
[2022-03-17] MEDS: IBUPROFEN 600 MG TAB PO PRN ×2 (05:36→15:21)
[2022-03-17 06:58] LABS: Hematocrit (blood only) 36.9 % (34.1-44.9); Hemoglobin 12.1 g/dl (12.0-16.0); Mean Corpuscular Hgb Conc 32.8 g/dL (32.0-36.0); Mean Corpuscular Volume 91.3 fL (80.0-100.0); Mean Platelet Volume 10.3 fL (9.4-12.3); Platelet Count 177 K/uL (130-400); RDW Coefficient of Variation 13.4 % (11.5-14.5); RDW Standard Deviation 44.5 fL (36.4-46.3); Red Blood Count 4.04 M/uL (3.93-5.22); White Blood Count 16.38 K/ul (4.8-10.8)
[2022-03-17] MEDS: PRENATAL VITAMIN 1 TAB PO SCH (07:39)
[2022-03-17] MEDS: DOCUSATE SODIUM 100 MG CAP PO SCH ×2 (07:39→20:36)
--- NOTE | 2022-03-17 09:20 | Obstetrical Progress Note ---
Date of Service March 17, 2022 Assessment & Plan Admission and Anticipated Discharge Date Admission Date: March 15, 2022 Subjective Patient is seen and examined. She feels well, no complaints. Ambulating without dizziness Voiding without difficulty Tolerating regular diet with out N&V Bleeding is minimal No fever/ chills/ CP/ SOB/ N&V/ Leg pain Breast and bottle feeding without problems Lab Results 03/15/22 03/15/22 03/16/22 Range/Units 17:50 18:12 01:39 WBC 12.09 H (4.8-10.8) K/ul RBC 4.24 (3.93-5.22) M/uL Hgb 13.1 (12.0-16.0) g/dl Hct 38.7 (34.1-44.9) % MCV 91.3 (80.0-100.0) fL MCH 30.9 (25.0-34.0) pg MCHC 33.9 (32.0-36.0) g/dL RDW Std Deviation 44.2 (36.4-46.3) fL RDW Coeff of Luciana 13.2 (11.5-14.5) % Plt Count 191 (130-400) K/uL MPV 10.2 (9.4-12.3) fL Cord ABG pH (7.1-7.38) Cord ABG pCO2 (39.1-73.5) mmHg Cord ABG pO2 (4.1-31.7) mmHg Cord ABG HCO3 (19.7-28.5) mmol/L Cord ABG Base Excess (-9-1.8) mEq/L Cord ABG O2 Sat (<60) % Cord VBG pH 7.28 (7.20-7.44) Cord VBG pCO2 48 (30.4-57.2) mmHg Cord VBG pO2 28 (14.1-43.3) mmHg Cord VBG HCO3 23 (18.4-26.8) mmol/L Cord VBG Base Excess -4.4 (-7.7-1.9) mEq/L Cord VBG O2 Sat < 60.0 (<68) % Blood Gas Comments [place] SARS-CoV-2, RNA, NAAT NEGATIVE (NEGATIVE) 03/16/22 03/17/22 Range/Units 01:39 06:28 WBC 16.38 H (4.8-10.8) K/ul RBC 4.04 (3.93-5.22) M/uL Hgb 12.1 (12.0-16.0) g/dl Hct 36.9 (34.1-44.9) % MCV 91.3 (80.0-100.0) fL MCH 30.0 (25.0-34.0) pg MCHC 32.8 (32.0-36.0) g/dL RDW Std Deviation 44.5 (36.4-46.3) fL RDW Coeff of Luciana 13.4 (11.5-14.5) % Plt Count 177 (130-400) K/uL MPV 10.3 (9.4-12.3) fL Cord ABG pH 7.17 (7.1-7.38) Cord ABG pCO2 69 (39.1-73.5) mmHg Cord ABG pO2 14 (4.1-31.7) mmHg Cord ABG HCO3 25 (19.7-28.5) mmol/L Cord ABG Base Excess -4.7 (-9-1.8) mEq/L Cord ABG O2 Sat < 60.0 (<60) % Cord VBG pH (7.20-7.44) Cord VBG pCO2 (30.4-57.2) mmHg Cord VBG pO2 (14.1-43.3) mmHg Cord VBG HCO3 (18.4-26.8) mmol/L Cord VBG Base Excess (-7.7-1.9) mEq/L Cord VBG O2 Sat (<68) % Blood Gas Comments [place] SARS-CoV-2, RNA, NAAT (NEGATIVE) Vital Signs Temp Pulse Resp BP Pulse Ox O2 Del Method 03/17/22 07:45 36.5 C 80 18 103/70 97 Room Air 03/16/22 23:40 36.6 C 75 18 106/72 PE: General: Alert, orientedx3, NAD Abd: soft, NT, fundus firm, below Umbilicus Perineum intact, Lochia rubra minimal Ext; NT, no edema AP: 36 yo s/p , ppd# 1 VSS Afebrile doing well Continue routine care All questions were answered D/C home tomorrow Results & Data ([place]) Vital Signs (Past 12 Hours) Vital Signs Temp Pulse Resp BP Pulse Ox O2 Del Method 03/17/22 07:45 36.5 C 80 18 103/70 97 Room Air 03/16/22 23:40 36.6 C 75 18 106/72
[2022-03-17] MEDS ORDERED: bisacodyL 5 MG TABEC PO SCH (20:00)
[2022-03-18] MEDS: IBUPROFEN 600 MG TAB PO PRN ×2 (02:58→07:50)
[2022-03-18] MEDS ORDERED: bisacodyL 10 MG SUPP PR PRN (06:00)
[2022-03-18 07:17] LABS: Basophils # (auto) 0.05 K/uL (0-0.2); Basophils % (auto) 0.4 %; Eosinophils # (auto) 0.29 K/uL (0-0.50); Eosinophils % (auto) 2.2 %; Hematocrit (blood only) 35.2 % (34.1-44.9); Hemoglobin 11.7 g/dl (12.0-16.0); Immature Granulocytes # (auto) 0.09 K/uL (0.00-0.02); Immature Granulocytes % (auto) 0.7 %; Lymphocytes # (auto) 1.34 K/uL (1.2-3.4); Lymphocytes % (auto) 10.2 %; Mean Corpuscular Hemoglobin 30.2 pg (25.0-34.0); Mean Corpuscular Hgb Conc 33.2 g/dL (32.0-36.0); Monocytes % (auto) 5.3 %; Neutrophils # (auto) 10.69 K/uL (1.4-6.5); Neutrophils % (auto) 81.2 %; Platelet Count 188 K/uL (130-400); RDW Coefficient of Variation 13.4 % (11.5-14.5); RDW Standard Deviation 44.6 fL (36.4-46.3); Red Blood Count 3.87 M/uL (3.93-5.22); White Blood Count 13.16 K/ul (4.8-10.8)
[2022-03-18] MEDS: PRENATAL VITAMIN 1 TAB PO SCH (07:50)
[2022-03-18] MEDS: DOCUSATE SODIUM 100 MG CAP PO SCH (07:50)
== END 2022-03-18 10:22 | disposition home or self-care (01) | DRG 768 ==
LOC: OPB 16:30 → 4S1 16:32 → 4E2 03-16 04:37